=== PATIENT | female | born 1970 | race African-American/Black ===

== ENCOUNTER 2017-08-16 12:31 | Emergency (ER) | payer MEDICAID ==
[~2017-08-16] VITALS: Ht 162.6 cm; Wt 94.9 kg
[2017-08-16 13:01] VITALS: BP 118/79
--- NOTE | 2017-08-16 13:05 | NUR ---
PT AMBULATED TO CHAIR A.
--- NOTE | 2017-08-16 13:24 | NUR ---
PATIENT PRESENTS TO ED WITH GENERALIZED WEAKNESS X2 WEEKS. PT STATES INCREASED WORSENING OF WEAKNESS RELATED TO MS. DENIES N/V/D; SKIN IS PINK/WARM/DRY; AAOX4 WITH EVEN AND STEADY GAIT; LUNGS CLEAR BL; HR EVEN AND REGULAR; PT DENIES ANY FEVER, CP, SOB, OR COUGH AT THIS TIME; PATIENT STATES PAIN OF 0/10 AT THIS TIME; VSS. ER MD MADE AWARE OF PT STATUS.
--- NOTE | 2017-08-16 13:40 | NUR ---
PT TAKEN TO XRAY
[2017-08-16 14:34] LABS: HEMOGLOBIN 9.2 g/dL (12.0-16.0); MEAN CORPUSCULAR HEMOGLOBIN 20 pg (27-31); MEAN CORPUSCULAR HGB CONC 31 g/dL (33-37); MEAN CORPUSCULAR VOLUME 66 fL (80-94); PLATELET COUNT (AUTO) 197 K/uL (140-450); RED BLOOD CELL COUNT(AUTO) 4.55 MIL/uL (4.20-5.40); RED CELL DISTRIBUTION WIDTH 17.5 % (11.6-13.7); WHITE BLOOD COUNT (AUTO) 8.5 K/uL (4.8-10.8)
[2017-08-16 14:39] LABS: BILIRUBIN,URINE NEGATIVE (NEGATIVE); BLOOD, URINE NEGATIVE (NEGATIVE); COLOR,URINE YELLOW (YELLOW); LEUKOCYTE ESTERASE ,URINE NEGATIVE (NEGATIVE); NITRITE, URINE NEGATIVE (NEGATIVE); PH,URINE 5.5 (5.0-9.0); UGLUCOSE NEGATIVE (NEGATIVE)
[2017-08-16 14:42] LABS: PROTHROMBIN TIME 10.9 secs (10.8-13.4)
[2017-08-16 14:42] LABS: APPEARANCE,URINE CLEAR (CLEAR)
[2017-08-16 14:46] LABS: CALCIUM OXALATE CRYSTALS,UR 0-10 /HPF (None Seen); RBC,URINE NONE SEEN /HPF (0-5); WBC,URINE NONE SEEN /HPF (0-5)
[2017-08-16 14:51] LABS: LYMPHOCYTES % (MANUAL) 39 % (20-46); MONOCYTES % (MANUAL) 2 % (5-12)
[2017-08-16 14:52] LABS: CREATININE 0.9 mg/dL (0.6-1.3); THYROID STIMULATING HORMONE 1.75 uIU/mL (0.34-3.74); TOTAL BILIRUBIN 0.2 mg/dL (0.0-1.0)
[2017-08-16] MEDS ORDERED: predniSONE 20 MG TAB PO ONE (14:55)
[2017-08-16 15:16] LABS: ALBUMIN 3.7 g/dL (3.4-5.0); FREE T4 (FREE THYROXINE) 0.83 ng/dL (0.76-1.46)
[2017-08-16 15:53] VITALS: BP 98/54
== END 2017-08-16 15:53 | disposition home or self-care (01) ==
LOC: MED 12:31
DX: G35 Multiple sclerosis (principal); L93.0 Discoid lupus erythematosus; Z91.041 Radiographic dye allergy status; Z88.2 Allergy status to sulfonamides
CPT/HCPCS: 36415; 70450; 71045; 80053; 81001; 83519; 84439; 84443; 84484; 85025; 85610; 85730; 93005; 99285; J7030; J7512